=== PATIENT | female | born 1985 | race African-American/Black ===

== ENCOUNTER 2016-04-27 00:22 | Inpatient (IN) | payer OTHER ==
[2016-04-27] MEDS ORDERED: BUTORPHANOL TARTRATE 1 MG/ML VIAL IVPB ONE (01:03)
[2016-04-27] MEDS ORDERED: PROMETHAZINE HCL 25 MG/1 ML VIAL IVPUSH ONE (01:03)
[2016-04-27 01:11] LABS: BASOPHIL 0.6 % (0-2.0); EOSINOPHIL 0.8 % (0-4.5); MCH 25.8 pg (25.7-33.7); MCHC 32.7 g/dl (32.0-36.0); MEAN CELL VOLUME 78.8 fl (80-96); MEAN PLT VOLUME 8.1 fl (7.5-11.1); NEUTROPHILS 74.6 % (42.8-82.8); PLATELET COUNT 296 K/MM3 (134-434); RDW 14.2 % (11.6-15.6); WHITE BLOOD COUNT 13.4 K/mm3 (4.0-10.0)
[2016-04-27] MEDS ORDERED: DEXTROSE 5%-LACTATED RINGERS 1,000 ML IV SCH (01:15)
[2016-04-27 01:31] LABS: CALCIUM 9.6 mg/dL (8.5-10.1); CREATININE 0.5 mg/dL (0.55-1.02)
[2016-04-27 01:43] LABS: INR 0.95 (0.82-1.09); PROTHROMBIN TIME (PATIENT) 10.4 SEC (9.98-11.88)
[2016-04-27 01:46] LABS: ACTIVATED PTT 28.1 SECONDS (26.9-34.4)
[2016-04-27 02:18] VITALS: BMI 29.9
--- NOTE | 2016-04-27 02:44 | HP ---
Past Medical History - Primary Care Physician PCP:: Marialuisa Patino - Admission Chief Complaint: Labor History of Present Illness: 40 ugo EDC 05/03/16 EGA 39.1 week admitted in active labor no rom bleedin ruq or CHURCH History Source: Patient - Past Medical History ...: 3 ...Para: 1 ...Term: 1 ...: 0 ...Spon : 1 ...Induced : 0 ...Multiple Gestation: 0 ...LMP: 07/09/15 ... Weeks Gestation by Dates: 41.6 ...EDC by Dates: 04/14/16 ...EDC by Sono: 05/03/16 - Past Surgical History Past Surgical History: Yes: Appendectomy Hx Myomectomy: No Hx Transabdominal Cerclage: No - Smoking History Smoking history: Never smoked Have you smoked in the past 12 months: No - Alcohol/Substance Use Hx Alcohol Use: No History of Substance Use: reports: None - Social History Usual Living Arrangement: Yes: With Spouse Home Medications - Allergies Allergies/Adverse Reactions: Allergies Allergy/AdvReac Type Severity Reaction Status Date / Time No Known Drug Allergies Allergy Verified 09/22/15 09:12 - Home Medications Home Medications: Ambulatory Orders Doxylamine/Pyridoxine HCl [Leonor Gibson 10-10 mg Tablet] 2 each PO HS #14 tablet. 09/22/15 Ondansetron [Zofran Odt -] 4 mg SL TID PRN #21 od.tablet 09/22/15 Pnv95/Ferrous Fumarate/FA [ Caplet] 1 each PO DAILY 09/22/15 Review of Systems - Review of Systems Constitutional: reports: No Symptoms Eyes: reports: No Symptoms HENT: reports: No Symptoms Neck: reports: No Symptoms Cardiovascular: reports: No Symptoms Respiratory: reports: No Symptoms Gastrointestinal: reports: Abdominal Pain Genitourinary: reports: No Symptoms Breasts: reports: No Symptoms Reported Musculoskeletal: reports: No Symptoms Integumentary: reports: No Symptoms Neurological: reports: No Symptoms Endocrine: reports: No Symptoms Hematology/Lymphatic: reports: No Symptoms Psychiatric: reports: No Symptoms Physical Exam - Maternity Vital Signs: Vital Signs Temperature 99.2 F 04/27/16 01:59 Pulse Rate 107 H 04/27/16 01:59 Respiratory Rate 20 04/27/16 01:59 Blood Pressure 126/72 04/27/16 01:59 O2 Sat by Pulse Oximetry (%) Constitutional: Yes: Well Nourished, No Distress - Abdominal Exam/OB Fundal Height: 40 Number of Fetuses: Single Presentation: Vertex Contractions: Yes Regularity: Regular Intensity: Moderate Monitor Mode: External Category: I Accelerations: Non-Uniform Decelerations: None - Vaginal Exam/OB Dilatation (cm): 8cm Effacement (%): 100 Amniotic Membrane Status: Bulging Presentation: Vertex/Position Station: -1 - Physical Exam Musculoskeletal: Yes: WNL, Muscle Weakness Edema: No - Labs Lab Results: CBC, BMP 04/27/16 00:55 04/27/16 00:55 Assessment/Plan Labor cat 1 plan anticipate vaginal delivery
--- NOTE | 2016-04-27 02:50 | PN ---
Ante-Partal Exam - Subjective Subjective: Pt doing well SP stadol sleeping Vital Signs: Vital Signs Temperature 99.2 F 04/27/16 01:59 Pulse Rate 107 H 04/27/16 01:59 Respiratory Rate 20 04/27/16 01:59 Blood Pressure 126/72 04/27/16 01:59 O2 Sat by Pulse Oximetry (%) Bleeding: No Headache: No Visual changes: No Right upper quadrant pain: No - Contractions Contractions: Yes Regularity: Regular Intensity: Moderate Monitor Mode: External - Exam during Labor Heart Rate: 135 Variability: Moderate Category: II Monitor Accelerations: Present Monitor Decelerations: Early Exam: Vaginal Dilatation (cm): 9 Effacement (%): 100 Amniotic Membrane Status: Ruptured Amniotic Fluid: Clear Presentation: Vertex Station: 0 - Intrapartum Hemorrhage Risk Risk Score: 0 Risk Level: Low Risk - Assessment/Plan Assessment/Plan: arom cat 2 early decels plan anticipate vaginal delivery
[2016-04-27] MEDS: D5W-LR W/ 20 UNITS OXYTOCIN 1,000 ML IV SCH ×2 (04:23→07:50)
[2016-04-27] MEDS ORDERED: BENZOCAINE 20% 57 GM BOTTLE TP PRN (04:37)
[2016-04-27] MEDS ORDERED: BISACODYL 10 MG SUPP.RECT RC PRN (04:37)
[2016-04-27] MEDS ORDERED: WITCH HAZEL 50% (TUCKS) 40 PAD/JAR PAD TP PRN (04:37)
[2016-04-27] MEDS ORDERED: METHYLERGONOVINE MALEATE 0.2 MG/1 ML AMP IM PRN (04:37)
[2016-04-27] MEDS ORDERED: BENZOCAINE 28 GM HEMORRHOIDAL OINTMENT TP PRN (04:37)
--- NOTE | 2016-04-27 04:39 | PN ---
Delivery - Delivery Vaginal Delivery: No Problems Type of Anesthesia: None Episiotomy/Laceration: 1st degree EBL (cc): 300 Delivery, Single - Stages of Labor Placenta: Yes: Spontaneous, Manual Removal - Condition of Infant Gender: Male Position: OA - Feeding Plan Initial Plan: Elected not to breastfeed exclusively throughout hospitalization
[2016-04-27 05:30] LABS: ARTERIAL BLD GAS O2 SATURATION 54.3 % (90-98.9); ARTERIAL BLOOD GAS BASE EXCESS -4.4 meq/l (-2-2); ARTERIAL BLOOD GAS HCO3 21.9 meq/L (22-26); ARTERIAL BLOOD GAS pH 7.29 (7.35-7.45)
[2016-04-27 05:33] LABS: ARTERIAL BLOOD GAS PO2 27.4 mmHg (80-100)
[2016-04-27 05:37] LABS: VENOUS PH 7.3 (7.31-7.41)
[2016-04-27 05:39] LABS: VENOUS BLOOD GAS HCO3 21.6 meq/L (22-29)
[2016-04-28] MEDS: IBUPROFEN 600 MG TABLET (FP) PO PRN ×2 (02:03→20:45)
[2016-04-28] MEDS: ACETAMINOPHEN 325 MG TABLET (FP) PO PRN ×2 (02:05→20:46)
[2016-04-28 07:20] LABS: BASOPHIL 0.4 % (0-2.0); EOSINOPHIL 0.9 % (0-4.5); MCHC 32.2 g/dl (32.0-36.0); MEAN CELL VOLUME 80.7 fl (80-96); MEAN PLT VOLUME 7.5 fl (7.5-11.1); NEUTROPHILS 71.2 % (42.8-82.8); PLATELET COUNT 234 K/MM3 (134-434); RDW 14.1 % (11.6-15.6); WHITE BLOOD COUNT 13.4 K/mm3 (4.0-10.0)
--- NOTE | 2016-04-28 08:57 | PN ---
Post Progress Note Type of Delivery: Vital Signs: Vital Signs Temperature 98.3 F 04/28/16 08:15 Pulse Rate 80 04/28/16 08:15 Respiratory Rate 20 04/28/16 08:15 Blood Pressure 116/70 04/28/16 08:15 O2 Sat by Pulse Oximetry (%) 100 04/27/16 05:30 Breast Exam: Yes: Soft Uterus: Yes: Fundus Firm Abdomen/GI: Yes: Abdomen soft, Tolerating PO Lochia: Yes: Rubra Lochia, amount: Moderate Extremities: Yes: Calves non-tender Activity: Ambulating - Labs Labs: CBC WBC 13.4 K/mm3 (4.0-10.0) H 04/28/16 06:30 RBC 3.59 M/mm3 (3.60-5.2) L 04/28/16 06:30 Hgb 9.3 GM/dL (10.7-15.3) L D 04/28/16 06:30 Hct 29.0 % (32.4-45.2) L 04/28/16 06:30 MCV 80.7 fl (80-96) 04/28/16 06:30 MCHC 32.2 g/dl (32.0-36.0) 04/28/16 06:30 RDW 14.1 % (11.6-15.6) 04/28/16 06:30 Plt Count 234 K/MM3 (134-434) D 04/28/16 06:30 MPV 7.5 fl (7.5-11.1) 04/28/16 06:30 Neutrophils % 71.2 % (42.8-82.8) 04/28/16 06:30 Lymphocytes % 18.1 % (8-40) 04/28/16 06:30 Monocytes % 9.4 % (3.8-10.2) 04/28/16 06:30 Eosinophils % 0.9 % (0-4.5) 04/28/16 06:30 Basophils % 0.4 % (0-2.0) 04/28/16 06:30 Assessment/Plan Status post Stable Continue routine care
--- NOTE | 2016-04-28 11:06 | DS ---
Physical Exam-[employer]TAIN Vital Signs: Vital Signs Temperature 98.3 F 04/28/16 08:15 Pulse Rate 80 04/28/16 08:15 Respiratory Rate 20 04/28/16 08:15 Blood Pressure 116/70 04/28/16 08:15 O2 Sat by Pulse Oximetry (%) 100 04/27/16 05:30 Constitutional: Yes: Well Nourished, No Distress Gastrointestinal: Yes: WNL, Normal Bowel Sounds Uterus: Yes: Normal ....Post : Yes: Uterus firm, Uterus non-tender Musculoskeletal: Yes: WNL Extremities: Yes: WNL Edema: No Neurological: Yes: WNL, Alert, Oriented Labs: CBC, BMP 04/28/16 06:30 04/27/16 00:55 Delivery - Delivery Vaginal Delivery: No Problems Type of Anesthesia: None Episiotomy/Laceration: 1st degree EBL (cc): 300 Delivery, Single - Stages of Labor Date 1st Stage Initiatied: 04/26/16 Time 1st Stage Initiated: 23:00 Date 2nd Stage Initiated: 04/27/16 Time 2nd Stage Initiated: 03:45 Date of Delivery: 04/27/16 Time of Delivery: 04:16 Time Placenta Delivered: 04:23 Placenta: Yes: Spontaneous, Manual Removal - Condition of Machine Riveter/Bone Glue Maker Present: No Infant Gender: Male Weight: 7 lb 15 oz Position: OA Total Hours ROM (Hrs/Mins): 1h53m - 1 Minute Total Score: 9 5 Minutes Total Score: 9 - Feeding Plan Initial Plan: Elected not to breastfeed exclusively throughout hospitalization Discharge Summary Reason For Visit: LABOR LABOR Procedures: Principal: Normal vaginal delivery Hospital Course: unremarkable Condition: Good - Instructions Diet, Activity, Other Instructions: Physical activity Resume your normal everyday activity as tolerated no heavy lifting or exercise until seen by your surgeon. You may walk unlimited celi of and climb stairs. You may resume driving the car when you feel safe and comfortable behind the wheel. No sexual activity as instructed. Wound care If you have a bandage, leave it on, and keep dry for 48-72 hours. After that time discard the outer bandage. If they are tapes on the skin under the out of bandage leave them in place. They will peel off in the next 7 to 10 days. Do Not Peel them off. You may shower the day after surgery. If there are tapes present on the skin, you may shower over them. Diet There are no dietary restrictions. Eat healthy, high-fiber foods. Drink 6 to 8 glasses of liquid each day. This will assist in keeping your bowels are regular. Pain management You may take Tylenol or acetaminophen or Ibuprofen (for example, Motrin, Advil etc.) from my pain prescription medication is ordered should be taken as prescribed for moderate to severe pain. Call MD for any of the following: Severe pain not relieved by medication Fever of 101 or higher Excessive bleeding or drainage on dressing Inability to urinate Disposition: HOME - Home Medications Comprehensive Discharge Medication List: Ambulatory Orders Doxylamine/Pyridoxine HCl [Leonor Gibson 10-10 mg Tablet] 2 each PO HS #14 tablet. 09/22/15 Ondansetron [Zofran Odt -] 4 mg SL TID PRN #21 od.tablet 09/22/15 Pnv95/Ferrous Fumarate/FA [ Caplet] 1 each PO DAILY 09/22/15 Ibuprofen [Motrin -] 600 mg PO QID PRN #28 tablet 04/27/16
[2016-04-28 21:46] VITALS: TEMP 97.7
[2016-04-28] MEDS ORDERED: SENNOSIDES/DOCUSATE COMBO (SENNA PLUS) TABLET (UD) PO PRN (22:00)
[2016-04-29 08:36] VITALS: BP 130/67; PULSE 87
== END 2016-04-29 13:10 | disposition home or self-care (01) | DRG 775 ==
LOC: JLDR 00:22 → J3W 07:53
PROVIDERS: ADMIT Obstetrics & Gynecology; ATTEND Obstetrics & Gynecology
PROC: 10E0XZZ Delivery of Products of Conception, External Approach (ICD-10-PCS; principal; 2016-04-27)
PROC: 0HQ9XZZ Repair Perineum Skin, External Approach (ICD-10-PCS; 2016-04-27)
DX: O70.0 First degree perineal laceration during delivery (principal); Z3A.39 39 weeks gestation of pregnancy; Z37.0 Single live birth
CPT/HCPCS: 36415; 36600; 59409; 71020-TC; 80048; 82803; 85025; 85610; 85730; 86593; 86850; 86900; 86901